=== PATIENT | male | born 1940 | race Caucasian/White ===

== ENCOUNTER 2017-07-17 00:01 | Emergency (ER) | payer OTHER ==
[2017-07-17 01:22] LABS: URINE BLOOD (Dip) POC Trace-intact (NEGATIVE); URINE GLUCOSE (Dip) POC Negative (NEGATIVE); URINE KETONES (Dip) POC Negative (NEGATIVE); URINE LEUKOCYTE EST (Dip) POC Negative (NEGATIVE); URINE NITRITE (Dip) POC Negative (NEGATIVE); URINE TOTAL PROTEIN POC Negative (NEGATIVE)
[2017-07-17 01:22] LABS: URINE PH (Dip) POC 6.5 (5.0-8.5)
[2017-07-17 01:28] LABS: ADD MAN DIFF? NO
[2017-07-17 01:29] LABS: WHITE BLOOD COUNT 6.3 10^3/ul (4.8-10.8)
[2017-07-17 01:29] LABS: BASOPHILS % 0.5 % (0.0-2.0); EOSINOPHILS # 0.2 10^3/ul (0.0-0.5); EOSINOPHILS % 3.3 % (0.0-7.0); HEMATOCRIT 40.1 % (42.0-52.0); HEMOGLOBIN 13.7 g/dl (14.0-18.0); LYMPHOCYTES # 2.3 10^3/ul (0.8-2.9); LYMPHOCYTES % 36.1 % (15.0-51.0); MEAN CORPUSCULAR HEMOGLOBIN 29.8 pg (29.0-33.0); MEAN CORPUSCULAR HGB CONC 34.2 g/dl (32.0-37.0); MEAN CORPUSCULAR VOLUME 87.4 fl (82.0-101.0); MEAN PLATELET VOLUME 10.2 fl (7.4-10.4); MONOCYTE # 0.6 10^3/ul (0.3-0.9); MONOCYTES % 9.4 % (0.0-11.0); NEUTROPHIL # 3.2 10^3/ul (1.6-7.5); NEUTROPHILS % 50.4 % (39.0-77.0); PLATELET COUNT 217 10^3/UL (140-415); RED BLOOD COUNT 4.59 10^6/ul (4.70-6.10); RED CELL DISTRIBUTION WIDTH 12.6 % (11.5-14.5)
[2017-07-17 01:49] LABS: INR 0.96; PROTIME 12.9 Sec (11.9-14.9)
[2017-07-17 01:50] LABS: PARTIAL THROMBOPLASTIN TIME 36.5 Sec (25.0-35.0)
[2017-07-17 01:52] LABS: ALANINE AMINOTRANSFERASE 34 IU/L (13-69); ALBUMIN/GLOBULIN RATIO 1.21; ALKALINE PHOSPHATASE 102 IU/L (42-121); ANION GAP 14 (8-16); ASPARTATE AMINO TRANSFERASE 28 IU/L (15-46); BILIRUBIN,INDIRECT 0.5 mg/dl (0-1.1); BILIRUBIN,TOTAL 0.5 mg/dl (0.2-1.3); BLOOD UREA NITROGEN 24 mg/dl (7-20); CALCIUM 9.5 mg/dl (8.4-10.2); CARBON DIOXIDE 30 mmol/L (21-31); CHLORIDE 104 mmol/L (97-110); CREATININE 0.92 mg/dl (0.61-1.24); GLUCOSE 109 mg/dl (70-220); LIPASE 122 U/L (23-300); POTASSIUM 3.9 mmol/L (3.5-5.1); SODIUM 144 mmol/L (135-144); TOTAL PROTEIN 7.3 g/dl (6.1-8.1)
[2017-07-17] MEDS: KETOROLAC 15 MG INJ IV (03:39)
== END 2017-07-17 03:41 | disposition home or self-care (01) ==
LOC: E/R 00:01
DX: R51 Headache (principal); D64.9 Anemia, unspecified; I10 Essential (primary) hypertension; R10.13 Epigastric pain; Z85.46 Personal history of malignant neoplasm of prostate
CPT/HCPCS: 36415; 70450; 80053; 81003; 83690; 85025; 85610; 85730; 99284-25

== ENCOUNTER 2018-09-25 06:17 | Emergency (ER) | payer OTHER | END 2018-09-25 07:12 | disposition home or self-care (01) | LOC: FTE 06:17 | DX: J06.9 Acute upper respiratory infection, unspecified (principal); I10 Essential (primary) hypertension | CPT/HCPCS: 99283 ==

== ENCOUNTER 2018-11-20 20:52 | Observation (INO) | payer OTHER ==
[2018-11-20 21:15] LABS: ADD MAN DIFF? NO
[2018-11-20 21:17] LABS: WHITE BLOOD COUNT 6.8 10^3/ul (4.8-10.8)
[2018-11-20 21:17] LABS: BASOPHILS % 0.4 % (0.0-2.0); EOSINOPHILS # 0.2 10^3/ul (0.0-0.5); EOSINOPHILS % 3.1 % (0.0-7.0); HEMOGLOBIN 13.9 g/dl (14.0-18.0); LYMPHOCYTES # 2.6 10^3/ul (0.8-2.9); LYMPHOCYTES % 37.9 % (15.0-51.0); MEAN CORPUSCULAR HEMOGLOBIN 29.9 pg (29.0-33.0); MEAN CORPUSCULAR HGB CONC 33.1 g/dl (32.0-37.0); MEAN CORPUSCULAR VOLUME 90.3 fl (82.0-101.0); MONOCYTE # 0.6 10^3/ul (0.3-0.9); MONOCYTES % 9.3 % (0.0-11.0); NEUTROPHIL # 3.3 10^3/ul (1.6-7.5); NEUTROPHILS % 48.9 % (39.0-77.0); PLATELET COUNT 218 10^3/UL (140-415); RED BLOOD COUNT 4.65 10^6/ul (4.70-6.10); RED CELL DISTRIBUTION WIDTH 12.3 % (11.5-14.5)
[2018-11-20] MEDS: NITROGLYCERIN 2% 1 GM OINT PKT TD (21:29)
[2018-11-20] MEDS: NITROGLYCERIN (SL) 0.4 MG TAB SL (21:29)
[2018-11-20 21:35] LABS: ANION GAP 6 (5-13); BLOOD UREA NITROGEN 24 mg/dl (7-20); CALCIUM 9.3 mg/dl (8.4-10.2); CARBON DIOXIDE 26 mmol/L (21-31); CHLORIDE 105 mmol/L (97-110); CREATININE 0.87 mg/dl (0.61-1.24); GLUCOSE 161 mg/dl (70-220); POTASSIUM 3.9 mmol/L (3.5-5.1); SODIUM 137 mmol/L (135-144)
[2018-11-20 21:46] LABS: TROPONIN-I < 0.012 ng/ml (0.000-0.120)
[2018-11-20] MEDS ORDERED: NITROGLYCERIN (SL) 0.4 MG TAB SL (22:30)
[2018-11-20] MEDS ORDERED: BISACODYL (EC) 5 MG TAB PO (22:30)
[2018-11-20] MEDS ORDERED: ONDANSETRON 4 MG INJ IV ×2 (22:30)
[2018-11-20] MEDS ORDERED: morphine 2 MG INJ IV (22:30)
[2018-11-20] MEDS ORDERED: ACETAMINOPHEN 325 MG TAB PO ×2 (22:30)
[2018-11-20] MEDS ORDERED: DOCUSATE SODIUM 100 MG CAP PO (22:30)
[2018-11-20] MEDS ORDERED: NACL 0.9% 3 ML SYG IV (22:30)
[2018-11-20] MEDS ORDERED: hydrALAzine 20 MG INJ IV (22:30)
[2018-11-21 03:32] LABS: ADD MAN DIFF? NO
[2018-11-21 03:44] LABS: HEMOGLOBIN A1C 5.8 % (0-5.9)
[2018-11-21 03:54] LABS: CREATINE KINASE 56 IU/L (23-200)
[2018-11-21 03:58] LABS: ALANINE AMINOTRANSFERASE 26 IU/L (13-69); ALBUMIN 3.9 g/dl (3.3-4.9); ALBUMIN/GLOBULIN RATIO 1.25; ALKALINE PHOSPHATASE 77 IU/L (42-121); ANION GAP 6 (5-13); ASPARTATE AMINO TRANSFERASE 24 IU/L (15-46); BILIRUBIN,INDIRECT 0.4 mg/dl (0-1.1); BILIRUBIN,TOTAL 0.4 mg/dl (0.2-1.3); BLOOD UREA NITROGEN 19 mg/dl (7-20); CARBON DIOXIDE 27 mmol/L (21-31); CHLORIDE 106 mmol/L (97-110); CHOL/HDL RATIO 3.3 RATIO; CHOLESTEROL 112 mg/dl (100-200); CREATININE 0.78 mg/dl (0.61-1.24); GLUCOSE 107 mg/dl (70-220); HDL CHOLESTEROL 33 mg/dl (31-75); LDL CHOLESTEROL,CALCULATED 66 mg/dl; SODIUM 139 mmol/L (135-144); TRIGLYCERIDES 67 mg/dl (0-149)
[2018-11-21 04:05] LABS: CK INDEX 0.6; CK-MB 0.33 ng/ml (0.0-2.4); TROPONIN-I < 0.012 ng/ml (0.000-0.120)
[2018-11-21 04:10] LABS: WHITE BLOOD COUNT 6.5 10^3/ul (4.8-10.8)
[2018-11-21 04:10] LABS: BASOPHILS % 0.3 % (0.0-2.0); EOSINOPHILS # 0.2 10^3/ul (0.0-0.5); EOSINOPHILS % 2.5 % (0.0-7.0); HEMATOCRIT 39.6 % (42.0-52.0); HEMOGLOBIN 13.4 g/dl (14.0-18.0); LYMPHOCYTES # 2.1 10^3/ul (0.8-2.9); LYMPHOCYTES % 33.1 % (15.0-51.0); MEAN CORPUSCULAR HEMOGLOBIN 29.9 pg (29.0-33.0); MEAN CORPUSCULAR HGB CONC 33.8 g/dl (32.0-37.0); MEAN CORPUSCULAR VOLUME 88.4 fl (82.0-101.0); MEAN PLATELET VOLUME 10.1 fl (7.4-10.4); MONOCYTE # 0.6 10^3/ul (0.3-0.9); MONOCYTES % 8.5 % (0.0-11.0); NEUTROPHIL # 3.6 10^3/ul (1.6-7.5); PLATELET COUNT 209 10^3/UL (140-415); RED BLOOD COUNT 4.48 10^6/ul (4.70-6.10); RED CELL DISTRIBUTION WIDTH 12.4 % (11.5-14.5)
[2018-11-21] MEDS: KETOROLAC 15 MG INJ IV (07:20)
[2018-11-21] MEDS: LIDOCAINE/MYLANTA 40 ML BTL PO (07:21)
[2018-11-21] MEDS: LOSARTAN 50 MG TAB PO (09:06)
[2018-11-21 09:19] LABS: CREATINE KINASE 93 IU/L (23-200)
[2018-11-21 09:31] LABS: CK INDEX 0.5; CK-MB 0.47 ng/ml (0.0-2.4); TROPONIN-I < 0.012 ng/ml (0.000-0.120)
[2018-11-21] MEDS ORDERED: ATORVASTATIN 20 MG TAB PO (21:00)
[2018-11-21] MEDS ORDERED: TAMSULOSIN (SR) 0.4 MG CAP PO (21:00)
[2018-11-21] MEDS ORDERED: RANITIDINE 150 MG TAB PO (21:00)
== END 2018-11-21 13:48 | disposition home or self-care (01) ==
LOC: TEL 22:55 → E/R 20:52
DX: R07.89 Other chest pain (principal); I10 Essential (primary) hypertension; E78.00 Pure hypercholesterolemia, unspecified; E78.5 Hyperlipidemia, unspecified; C61 Malignant neoplasm of prostate; K29.70 Gastritis, unspecified, without bleeding; M19.90 Unspecified osteoarthritis, unspecified site; E86.0 Dehydration
CPT/HCPCS: 36415; 71045; 80048; 80053; 80061; 82550; 82553; 83036; 83735; 84443; 84484; 85025; 93005; 93306; 99285-25; G0378